=== PATIENT | male | born 1940 | race Caucasian/White ===

== ENCOUNTER 2016-11-17 10:21 | Emergency (ER) | payer OTHER ==
[~2016-11-17 10:21] MED LIST: ACET325T14 PO; ALPR1TAB2 PO; GABA-826 PO; METO25TA35 PO; MIRT30TA6 PO; MORP15TA3 PO; OXYC-229 PO; PENI500T PO; PHEN-490 PO; SIMV40TA3 PO; TAMS0.4C2 PO; TEMA15CA PO; TIOT18CA INH; TRAZ50TA18 PO
[2016-11-17 12:24] VITALS: BP 154/71
== END 2016-11-17 13:17 | disposition home or self-care (01) ==
LOC: ED 12:21
DX: K59.00 Constipation, unspecified (principal); Z99.3 Dependence on wheelchair
CPT/HCPCS: 74020; 99284

== ENCOUNTER 2016-12-07 12:06 | Emergency (ER) | payer OTHER ==
[~2016-12-07] VITALS: Ht 170.2 cm; Wt 63.7 kg
[2016-12-07 12:13] VITALS: BP 154/62
== END 2016-12-07 14:06 | disposition home or self-care (01) ==
LOC: ED 13:59
DX: K42.9 Umbilical hernia without obstruction or gangrene (principal); I10 Essential (primary) hypertension; G89.29 Other chronic pain; M54.9 Dorsalgia, unspecified; Z87.891 Personal history of nicotine dependence
CPT/HCPCS: 99281

== ENCOUNTER 2017-06-11 08:22 | Emergency (ER) | payer OTHER ==
[~2017-06-11] VITALS: Ht 170.2 cm; Wt 60.0 kg
[~2017-06-11 08:22] MED LIST changes: -OXYC-229 PO; +OXYC-307 PO; -PHEN-490 PO; +PHEN-582 PO
[2017-06-11] MEDS ORDERED: SODIUM CHLORIDE 0.9% 1,000ML IVBOLUS ONE (09:30)
[2017-06-11] MEDS ORDERED: SODIUM CHLORIDE FLUSH 10ML SYR IVF ONE (09:30)
[2017-06-11 09:37] LABS: ALBUMIN 3.7 g/dL (3.4-5.0); ANION GAP 7 mmol/L (5-15); CALCIUM 8.7 mg/dL (8.5-10.1); CHLORIDE 98 mmol/L (98-107)
[2017-06-11 09:40] LABS: ALANINE AMINOTRANSFERASE 12 U/L (12-78); ALKALINE PHOSPHATASE 67 U/L (45-117); BILIRUBIN,TOTAL 0.3 mg/dL (0.2-1.0); CREATININE 0.89 mg/dL (0.7-1.3); TOTAL PROTEIN 7.5 g/dL (6.4-8.2)
[2017-06-11 09:45] LABS: BASOPHILS # (AUTO) 0.03 x10^3/uL (0-0.1); BASOPHILS % (AUTO) 1 % (0-1); EOSINOPHILS # (AUTO) 0.05 x10^3/uL (0-0.4); EOSINOPHILS % (AUTO) 1 % (1-7); LYMPHOCYTES % (AUTO) 25 % (22-44); MD NO; MEAN CORPUSCULAR HEMOGLOBIN 29.3 pg (27.5-34.5); MEAN CORPUSCULAR VOLUME 88.8 fL (81-97); MEAN PLATELET VOLUME 7.6 fL (7.4-10.4); MONOCYTES # (AUTO) 0.53 x10^3/uL (0.2-0.8); MONOCYTES % (AUTO) 11 % (2-9); NEUTROPHILS # (AUTO) 3.07 x10^3/uL (1.8-6.8); NEUTROPHILS % (AUTO) 63 % (42-75); PLATELET COUNT 172 x10^3/uL (130-400); RED BLOOD COUNT 3.65 x10^6/uL (4.38-5.82); RED CELL DISTRIBUTION WIDTH 12.7 % (9.4-14.8)
[2017-06-11 09:45] LABS: CULTURE INDICATED? YES; MICROSCOPIC INDICATED
[2017-06-11] MEDS ORDERED: METHYLNALTREXONE 12 MG/0.6 ML SQ ONE (10:00)
[2017-06-11] MEDS ORDERED: CEFTRIAXONE PMX 1GM/50ML 50 ML IV ONE (11:00)
[2017-06-11 13:09] VITALS: BP 132/87
== END 2017-06-11 13:11 | disposition home or self-care (01) ==
LOC: ED 09:43
DX: K59.00 Constipation, unspecified (principal); N30.01 Acute cystitis with hematuria; I10 Essential (primary) hypertension
CPT/HCPCS: 36415; 74021; 80053; 81001; 85025; 87077; 87086; 96360; 96361; 96372; 99285; J7030; 87186

== ENCOUNTER 2017-06-28 14:06 | Emergency (ER) | payer OTHER ==
[~2017-06-28] VITALS: Ht 170.2 cm; Wt 59.1 kg
[2017-06-28] MEDS ORDERED: METHYLNALTREXONE 12 MG/0.6 ML SQ ONE (14:30)
[2017-06-28] MEDS ORDERED: OXYC20TA2 PO (16:41)
[2017-06-28 18:50] VITALS: BP 154/58
== END 2017-06-28 19:19 | disposition home or self-care (01) ==
LOC: ED 16:16
DX: K59.00 Constipation, unspecified (principal); G89.29 Other chronic pain; I10 Essential (primary) hypertension; Z87.891 Personal history of nicotine dependence
CPT/HCPCS: 74021; 96372

== ENCOUNTER 2017-08-03 20:02 | Emergency (ER) | payer OTHER ==
[~2017-08-03] VITALS: Ht 170.2 cm; Wt 57.5 kg
[~2017-08-03 20:02] MED LIST changes: +OXYC20TA2 PO
[2017-08-03 20:07] VITALS: BP 174/77
[2017-08-03 20:57] LABS: BASOPHILS # (AUTO) 0.02 x10^3/uL (0-0.1); BASOPHILS % (AUTO) 1 % (0-1); EOSINOPHILS # (AUTO) 0.01 x10^3/uL (0-0.4); EOSINOPHILS % (AUTO) 0 % (1-7); LYMPHOCYTES # (AUTO) 0.98 x10^3/uL (1-3.4); LYMPHOCYTES % (AUTO) 20 % (22-44); MD NO; MEAN CORPUSCULAR HEMOGLOBIN 29.9 pg (27.5-34.5); MEAN CORPUSCULAR HGB CONC 33.9 g/dL (33.2-36.2); MEAN CORPUSCULAR VOLUME 88.4 fL (81-97); MEAN PLATELET VOLUME 7.2 fL (7.4-10.4); MONOCYTES # (AUTO) 0.55 x10^3/uL (0.2-0.8); MONOCYTES % (AUTO) 11 % (2-9); NEUTROPHILS # (AUTO) 3.32 x10^3/uL (1.8-6.8); NEUTROPHILS % (AUTO) 68 % (42-75); PLATELET COUNT 205 x10^3/uL (130-400); RED BLOOD COUNT 3.51 x10^6/uL (4.38-5.82); RED CELL DISTRIBUTION WIDTH 13.8 % (9.4-14.8)
[2017-08-03 21:06] LABS: ANION GAP 7 mmol/L (5-15); CALCIUM 8.8 mg/dL (8.5-10.1); CHLORIDE 85 mmol/L (98-107); CREATININE 0.81 mg/dL (0.7-1.3)
[2017-08-03] MEDS ORDERED: METHYLNALTREXONE 12 MG/0.6 ML SQ ONE ×2 (21:30→22:03)
== END 2017-08-03 22:48 | disposition home or self-care (01) ==
LOC: ED 21:42
DX: K59.00 Constipation, unspecified (principal); E87.1 Hypo-osmolality and hyponatremia; I10 Essential (primary) hypertension; M54.9 Dorsalgia, unspecified; G89.29 Other chronic pain; I25.2 Old myocardial infarction
CPT/HCPCS: 36415; 74021; 80048; 82040; 85025; 93005; 96372; 99285